=== PATIENT | female | born 1960 | race Caucasian/White ===

== ENCOUNTER 2019-04-26 06:31 | Emergency (ER) | payer OTHER ==
[~2019-04-26] VITALS: Ht 165.1 cm; Wt 68.0 kg
[2019-04-26] MEDS ORDERED: CYMBALTA60 MG PO (06:47)
[2019-04-26] MEDS ORDERED: VALIUM5 MG PO (07:52)
[2019-04-26 08:03] VITALS: BP 153/92
== END 2019-04-26 08:03 | disposition home or self-care (01) ==
LOC: M.ERS 06:31
DX: F41.9 Anxiety disorder, unspecified (principal); Z88.5 Allergy status to narcotic agent